=== PATIENT | male | born 1965 | race Caucasian/White ===

== ENCOUNTER 2024-03-23 14:12 | Emergency (ER) | payer OTHER ==
[2024-03-23] VITALS (25 sets, daily range): BP systolic 153–221; BP diastolic 91–128
[~2024-03-23] VITALS: Ht 182.9 cm; Wt 97.5 kg
[2024-03-23] MEDS ORDERED: CANDESARTAN CIL32 MG PO (14:37)
[2024-03-23] MEDS ORDERED: LORazepam 2 MG/ML IV ONE (14:50)
[2024-03-23 15:00] LABS: BASO% 0.3 % (0-3); EOS% 1.1 % (0-8); HEMOGLOBIN 15.6 g/dl (14.0-18.0); IMMATURE GRANULOCYTES 0.2 % (0.0-5.0); LYMPH% 22.2 % (15-41); MEAN CELL VOLUME 97.1 fL CALC (80.0-100.0); MEAN CORPUSCULAR HGB 34.4 pG CALC (26.0-32.0); MEAN CORPUSCULAR HGB CONC 35.5 g/dL CAL (32.0-36.0); MONO% 8.5 % (2-13); NEUT# 4.23 thou/uL (1.82-7.42); NEUT% 67.7 % (42-76); RED BLOOD COUNT 4.53 mill/uL (4.70-6.10); RED CELL DISTRI WIDTH 11.8 % (11.5-15.5)
[2024-03-23 15:15] LABS: ALBUMIN 4.7 g/dL (3.2-5.0); ALKALINE PHOSPHATASE 47 u/l (38-126); ANION GAP 15 (6-22 (CALC)); BILIRUBIN, TOTAL 0.7 mg/dL (0.2-1.3); BUN 16 mg/dL (9-20); BUN/CREATININE RATIO 20 (12-20 (CALC)); CARBON DIOXIDE 24 mmol/l (22-30); CHLORIDE 104 mmol/l (95-108); CREATININE 0.8 mg/dL (0.7-1.3); ESTIMATED GFR 101 ML/MIN (>=90 (CALC)); ETHYL ALCOHOL 0 mg/dl (0-30); POTASSIUM 3.6 mmol/l (3.5-5.1); SGOT/AST 33 u/l (17-59); SODIUM 139 mmol/l (137-146)
[2024-03-23 15:32] LABS: URINE BILIRUBIN - DIPSTICK Negative (NEGATIVE); URINE BLOOD DIPSTICK Trace-lysed (NEGATIVE); URINE GLUCOSE - DIPSTICK Negative (NEGATIVE); URINE KETONE Negative (NEGATIVE); URINE LEUK ESTERASE Negative (NEGATIVE); URINE NITRITE - DIPSTICK Negative (Negative); URINE PH 5.5 (4.5-8.0); URINE PROTEIN - DIPSTICK Negative (NEG-TRACE); URINE SPECIFIC GRAVITY 1.015; URINE UROBILINOGEN - DIPSTICK 0.2 E.U./dL (0.2)
[2024-03-23 15:37] LABS: URINE COLOR Yellow
[2024-03-23] MEDS ORDERED: LABETALOL HCL 100 MG/20 ML VIAL IV ONE (15:40)
[2024-03-23] MEDS ORDERED: HYDROCHLOROTH12.5 MG PO ×2 (16:37→18:23)
[2024-03-23] MEDS ORDERED: ATIVAN1 MG PO ×2 (16:37→18:23)
[2024-03-23] MEDS ORDERED: hydrALAZINE HCL 20 MG/ML VIAL(1 ML) IV ONE (16:55)
== END 2024-03-23 18:04 | disposition home or self-care (01) | DRG 305 ==
LOC: ED 14:12
PROVIDERS: Family Medicine
DX: I10 Essential (primary) hypertension (principal); F10.20 Alcohol dependence, uncomplicated; F41.9 Anxiety disorder, unspecified; F17.210 Nicotine dependence, cigarettes, uncomplicated
CPT/HCPCS: J2060